=== PATIENT | female | born 1980 | race Caucasian/White ===

== ENCOUNTER → 2017-05-01 | Outpatient (CLI) | payer BC ==
[2017-05-01 11:06] LABS: HEMOGLOBIN 14.4 gm/dl (12.3-15.3); RED BLOOD COUNT 4.98 M/UL (4.00-5.10); WHITE BLOOD COUNT 8.6 K/UL (4.5-11.0)
[2017-05-01 11:25] LABS: BUN/CREATININE RATIO 14 (0-10)
== END ==
LOC: LAB 09:42
PROVIDERS: Nurse Practitioner
DX: R53.83 Other fatigue (principal); E78.5 Hyperlipidemia, unspecified
CPT/HCPCS: 36415; 80053; 80061; 84436; 84443; 84480; 85025; 86039; 86431

== ENCOUNTER 2021-04-19 10:20 | Emergency (ER) | payer OTHER ==
[~2021-04-19 10:20] MED LIST: CYCLOBENZAPRINE5 MG PO; FELDENE10 MG PO; FLEXERIL 10 MG10 MG PO; LODINE CAP 300300 MG PO; NAPROSYN500 MG PO; PREDNISONE 50 M50 MG PO
== END 2021-04-19 11:20 | disposition left against medical advice (07) ==
LOC: ER1 10:20
DX: R51.9 Headache, unspecified (principal); R11.2 Nausea with vomiting, unspecified; F17.210 Nicotine dependence, cigarettes, uncomplicated
CPT/HCPCS: 99284

== ENCOUNTER 2021-10-24 12:49 | Emergency (ER) | payer OTHER ==
[2021-10-24] MEDS ORDERED: CYCLOBENZAPRINE10 MG PO (15:22)
== END 2021-10-24 15:43 | disposition home or self-care (01) ==
LOC: ER1 12:49
DX: S39.012A Strain of muscle, fascia and tendon of lower back, initial encounter (principal); S16.1XXA Strain of muscle, fascia and tendon at neck level, initial encounter; S69.91XA Unspecified injury of right wrist, hand and finger(s), initial encounter; V49.9XXA Car occupant (driver) (passenger) injured in unspecified traffic accident, initial encounter
CPT/HCPCS: 72125; 72131; 73030; 73130; 81001; 84703; 99284